=== PATIENT | male | born 1985 | race African-American/Black ===

== ENCOUNTER 2017-07-10 09:26 | Emergency (ER) | payer OTHER ==
[2017-07-10 09:31] VITALS: BP 144/88
--- NOTE | 2017-07-10 09:47 | ED Physician Documentation ---
PD HPI LOWER EXT INJURY - Stated complaint Stated Complaint: GLF/R FOOT INJ - Chief complaint Chief Complaint: Ext Problem - History obtained from History obtained from: Patient, Friend - History of Present Illness PD HPI LOW EXT INJURY LOCATION: Right, Ankle Type of injury: Twist Where injury occurred: Home Timing - onset: Last night Timing - duration: Hours Timing - details: Abrupt onset, Still present Improved by: Rest, Immobilization Worsened by: Moving, Palpating Associated symptoms: Swelling Contributing factors: No: Anticoagulated Similar symptoms before: Has not had sx before Recently seen: Not recently seen - Additional information Additional information: 32-year-old male was going down some steps last night when he slipped and twisted his right ankle. He indicates that the top part of his foot was touching the ground. He has pain in the medial and lateral malleoli.He is able to bear some weight on his heel. Review of Systems Constitutional: denies: Fever Respiratory: denies: Cough GI: denies: Vomiting Skin: denies: Rash Musculoskeletal: reports: Joint pain, Joint swelling, Pain with weight bearing. denies: Neck pain, Back pain Neurologic: denies: Generalized weakness, Focal weakness, Numbness PD PAST MEDICAL HISTORY - Present Medications Home Medications: Ambulatory Orders Medication Instructions Recorded Confirmed No Known Home Medications [No 07/10/17 07/10/17 Known Home Medications] - Allergies Allergies/Adverse Reactions: Allergies Allergy/AdvReac Type Severity Reaction Status Date / Time Penicillins Allergy Hives Verified 07/10/17 09:31 PD ED PE NORMAL - Vitals Vital signs reviewed: Yes (Tachycardic and hypertensive) - General General: Alert and oriented X 3, No acute distress, Well developed/nourished - HEENT HEENT: Atraumatic - Respiratory Respiratory: No respiratory distress - Derm Derm: Normal color, Warm and dry, No rash - Extremities Extremities: No deformity, Other (There is swelling to the ankle both medial and lateral there is tenderness to both malleoli there is no tenderness to the proximal fifth. Distal neurovascular components are intact.) - Neuro Neuro: No motor deficit, No sensory deficit - Psych Psych: Normal mood, Normal affect Results - Vitals Vitals: Vital Signs - 24 hr 07/10/17 09:29 Temperature 35.4 C L Heart Rate 107 H Respiratory 14 Rate Blood Pressure 144/88 H O2 Saturation 98 Oxygen O2 Source Room air - Rads (name of study) R ankle Radiology: Prelim report reviewed (Impression: 1. No fracture or bony malalignment. Soft tissue swelling.Impression: 1. No fracture or bony malalignment. 2. Soft tissue swelling.), EMP read indepedently, See rad report Procedures - Splint (location) Right ankle Splint applied by: Tech Type of splint: Ankle airsplint Other: Patient tolerated well, No complications, Neurovascular intact, Good alignment PD MEDICAL DECISION MAKING - ED course Complexity details: reviewed results, re-evaluated patient, considered differential, d/w patient ED course: 32-year-old male with a twisted swollen ankle appears to have a sprain and he is placed into a air stirrup. Departure - Departure Disposition: 01 Home, Self Care Clinical Impression: Ankle sprain Qualifiers: Encounter type: initial encounter Involved ligament of ankle: calcaneofibular ligament Laterality: right Qualified Code(s): S93.411A - Sprain of calcaneofibular ligament of right ankle, initial encounter Instructions: ED Sprain Ankle W X Ray Follow-Up: DONTA Holbrook [Provider Group] Comments: Today in the Emergency Department your blood pressure was elevated. This can happen from the stress of the visit itself, from a current illness or circumstance or from uncontrolled hypertension. If you take blood pressure medications take your usual mediations, have your blood pressure re-checked in an appropriate setting and follow up any elevation with your primary care doctor.
--- NOTE | 2017-07-10 10:35 | XRAY Preliminary Report ---
Exam: XR ANKLE 3 VIEW RT IMPRESSION: 1. No fracture or bony malalignment. 2. Soft tissue swelling. [facility] SITE ID: [id number]
--- NOTE | 2017-07-10 10:37 | XRAY Report ---
EXAM: RIGHT ANKLE RADIOGRAPHY EXAM DATE: 07/10/2017 10:26 AM. CLINICAL HISTORY: Ankle pain and swelling after fall last night. COMPARISON: None. TECHNIQUE: 3 views. FINDINGS: Bones: No fracture or bone lesion. Joints: No subluxation or joint effusion. Joint spaces are preserved. Symmetrical ankle mortise. Soft Tissues: Mild to moderate swelling, more prominent laterally. IMPRESSION: 1. No fracture or bony malalignment. 2. Soft tissue swelling. [facility] Referring Provider Line: [phone] SITE ID: [id number]
== END 2017-07-10 11:09 | disposition home or self-care (01) ==
LOC: ED 09:26
DX: S93.411A Sprain of calcaneofibular ligament of right ankle, initial encounter (principal); W01.0XXA Fall on same level from slipping, tripping and stumbling without subsequent striking against object, initial encounter; X50.1XXA Overexertion from prolonged static or awkward postures, initial encounter; Y92.009 Unspecified place in unspecified non-institutional (private) residence as the place of occurrence of the external cause; R03.0 Elevated blood-pressure reading, without diagnosis of hypertension
CPT/HCPCS: 99283